=== PATIENT | male | born 1950 | race Caucasian/White ===

== ENCOUNTER 2017-08-19 00:12 | Observation (INO) | payer MEDICARE ==
[2017-08-19] VITALS (19 sets, daily range): BP systolic 97–145; BP diastolic 59–107
[~2017-08-19] VITALS: Ht 177.8 cm; Wt 74.4 kg
[~2017-08-19 00:12] MED LIST: ACET500T68 PO; ASPI-1471 PO; BIMA2.5D5 OP; CEPH500T7 PO; DOXY-179 PO; GLUC500T22 PO; HYDR-385 PO; MULT1TAB64 PO; OMEG-11 PO; OMEG1CAP39 PO; PNEI IJ; SIMV-49 PO; VITAPULSE PO
[2017-08-19] MEDS ORDERED: LIDOCAINE/SOD BICARB 8.4% SYR ID ONE (09:00)
[2017-08-19] MEDS ORDERED: GABAPENTIN 300 MG CAP PO ONE (09:00)
[2017-08-19] MEDS ORDERED: MIDAZOLAM 2 MG/2 ML VIAL IVP PRN (09:00)
[2017-08-19] MEDS ORDERED: NORMOSOL R SOLN(*) 1000 ML BAG 1,000 ML IV PRN (09:00)
[2017-08-19] MEDS ORDERED: DIAZEPAM 5 MG TAB PO ONE (09:00)
[2017-08-19] MEDS ORDERED: FAMOTIDINE 20 MG TAB PO ONE (09:00)
[2017-08-19] MEDS ORDERED: ceFAZolin(*) 2GM/D5W 50ML 50 ML IVPB ONE (09:00)
[2017-08-19 09:10] LABS: PLATELET COUNT, AUTOMATED 146 K/uL (150-450)
[2017-08-19] MEDS ORDERED: PROPOFOL EMUL(*) 10MG/ML 20 ML 40 ML ONE (09:28)
[2017-08-19] MEDS ORDERED: ROCURONIUM BROM 10 MG/ML 10 ML ONE (09:28)
[2017-08-19] MEDS ORDERED: ONDANSETRON 4 MG/2 ML VIAL ONE (09:28)
[2017-08-19] MEDS ORDERED: DEXAMETHASONE SOD PHOS 10MG/ML ONE (09:28)
[2017-08-19] MEDS ORDERED: ePHEDrine 25 MG/5 ML DISP.SYR IVP ONE (10:48)
[2017-08-19] MEDS ORDERED: fentaNYL CITR 250 MCG/5 ML AMP ONE (10:49)
[2017-08-19] MEDS ORDERED: SUGAMMADEX SOD 500 MG/5 ML SDV ONE (11:12)
[2017-08-19] MEDS ORDERED: SUGAMMADEX SOD 200 MG/2 ML SDV ONE (11:13)
[2017-08-19] MEDS ORDERED: diphenhydrAMINE 25 MG CAP PO PRN (12:05)
[2017-08-19] MEDS ORDERED: LR(*) 1000 ML BAG 1,000 ML IV PRN (12:05)
[2017-08-19] MEDS ORDERED: ACETAMINOPHEN(*)1000 MG/100 ML 100 ML IVPB PRN (12:05)
[2017-08-19] MEDS ORDERED: ONDANSETRON 4 MG/2 ML VIAL IVP PRN (12:05)
[2017-08-19] MEDS ORDERED: DIAZEPAM 5 MG TAB PO PRN (12:05)
[2017-08-19] MEDS ORDERED: HYDROmorphone HCL 2 MG/ML SDV IVP PRN (12:05)
[2017-08-19] MEDS ORDERED: BISACODYL 10 MG SUPP PR PRN (12:05)
[2017-08-19] MEDS ORDERED: BENZOCAINE/MENTHOL 1 EACH LOZG PO PRN (12:05)
[2017-08-19] MEDS ORDERED: MAGNESIUM HYDROXIDE* 30ML UDCP PO PRN (12:05)
[2017-08-19] MEDS ORDERED: ACETAMINOPHEN 500 MG TAB PO PRN (12:05)
[2017-08-19] MEDS ORDERED: FLUSH 10 ML SYR IVP PRN (12:05)
[2017-08-19] MEDS ORDERED: fentaNYL CITR 100 MCG/2 ML AMP ONE (12:14)
[2017-08-19] MEDS: oxyCODONE HCL 5 MG CAP PO PRN (13:41)
--- NOTE | 2017-08-19 13:49 | Hospitalist Consultation ---
History of Present Illness Requesting Physician Dr. Matias Reason for Consult Medical Management Chief Complaint s/p laminectomies History of Present Illness He was admitted s/p laminectomies. It is reported the surgery went well and without complications. History Problems: (1) Low back pain Status: Chronic Home Meds Reported Medications Acetaminophen (TYLENOL EXTRA STRENGTH) 500 Mg Tablet, 500 MG PO PRN, TAB 08/12/17 Bimatoprost (LUMIGAN) 2.5 Ml Drops, 1 DROP OP QHS 07/14/16 Lapel-3 Fatty Acids/Fish Oil (FISH OIL 1,000 MG CAPSULE) 1 Each Capsule, 1 CAP PO QDAY, CAPSULE 05/31/14 Glucosamine Hcl (GLUCOSAMINE HCL) 500 Mg Tablet, 1 TAB PO DAILY 11/10/13 Aspirin (ASPIR 81) 81 Mg Tablet.dr, 1 TAB PO QDAY, TAB 11/10/13 Multivitamin (MULTI VITAMIN DAILY) 1 Each Tablet, 1 TAB PO DAILY 11/10/13 Discontinued Reported Medications [VitaPulse] No Conflict Check, 1 CAP PO QDAY 11/08/15 Discontinued Scripts Cephalexin 500 Mg Tab (KEFLEX 500 MG TAB) 500 Mg Tablet, 500 MG PO Q6H, #28 TAB Prov:MERCEDES JOHNSON [facility] 02/09/17 Hydrocodone Bit/Acetaminophen (HYDROCODON-ACETAMINOPHEN 5-325) 1 Each Tablet, 1 EACH PO Q4-6H Y for PAIN, #12 TAB Prov:MERCEDES JOHNSON [facility] 02/09/17 Doxycycline Hyclate (DOXYCYCLINE HYCLATE) 100 Mg Tablet, 100 MG PO BID, #20 TAB Prov:KELLY MENDOZA MD 09/11/16 Allergies: Coded Allergies: No Known Drug Allergies (Unverified , 08/12/17) Patient History: FH: [place] (myocardial infarction) FATHER, , Age:74, Onset:58 MATERNAL GRANDFATHER, , Age:50's - 60, Onset:50's - 60 FH: breast cancer MOTHER, , Age:84, Onset:Unknown FH: hypercholesterolemia BROTHER OR SISTER, Age:69 FH: skin cancer MOTHER, , Age:84, Onset:Unknown Hx Smoking: No (WHEN YOUNG) Smoking Status: Former Smoker Caffeine Intake: Coffee Caffeine/Cups Per Day: 4 CPD Hx Alcohol Use: No Hx Substance Use Disorder: No Social Drug Use: Never Review of Systems All Systems Reviewed/Normal: Yes, Except as Noted Exam Vital Signs Vital Signs Date Time Temp Pulse Resp B/P (MAP) Pulse Ox O2 Delivery O2 Flow Rate FiO2 08/19/17 13:34 94 08/19/17 13:30 60 131/77 (95) 08/19/17 13:28 Nasal Cannula 0.5 08/19/17 13:16 97.3 12 General Appearance: Alert, Awake, No Acute Distress, Afebrile Neuro: No Gross deficits Cardiovascular: Regular Rate and Rhythm Respiratory: No Respiratory Distress, Clear to Auscultation GI: Abd Soft and Non-Tender Psych: Alert & Oriented X3, Appropriate Mood & Affect Medical Decision Making Data Points Result Diagram: 08/19/17 0855 Assessment and Plan Problems: (1) S/P laminectomy Status: Acute Assessment & Plan: Followed by Dr. Matias. He denies any significant medical history. He denies prescribed medications and usually only takes vitamins daily. Venous Thromboembolism Antithrombotics Is Pt On Any Antithrombotics?: No Exam Sepsis Risk: No Definite Risk JAMES VILLAREAL PROFESSOR OF OCEANOGRAPHY August 19, 2017 13:49
--- NOTE | 2017-08-19 14:40 | OPERATIVE REPORT 1 ---
EVENT DATE: August 19, 2017 SURGEON: Anirudh Matias MD ANESTHESIOLOGIST: Angel Mckeon MD ANESTHESIA: General endotracheal anesthesia. LIPCOAT SPRAYER: RAMAKRISHNA Tong PREOPERATIVE DIAGNOSIS L3-L4 and L4-L5 spinal stenosis with bilateral lower extremity radiculopathy and neurogenic claudication. POSTOPERATIVE DIAGNOSIS L3-L4 and L4-L5 spinal stenosis with bilateral lower extremity radiculopathy and neurogenic claudication. PROCEDURE PERFORMED L3 to L5 laminectomy. INTRAVENOUS FLUIDS 1400 mL ESTIMATED BLOOD LOSS 75 mL IMPLANTS USED None. SPECIMENS None. DRAINS None. COMPLICATIONS None. DISPOSITION Post-anesthesia care unit. INDICATIONS FOR SURGERY Mr. Mariee is a 67-year-old male who presented to my clinic with the chief complaint of bilateral radiating pain, numbness, and tingling down the posterior buttock, posterolateral thigh, and down the anterior thigh. He noted weakness in bilateral lower extremities and decreased walking tolerance secondary to the pain, as well as a sensation of heaviness and tiredness in his legs. His physical examination was essentially normal, but his imaging studies revealed severe spinal stenosis at the L4-L5 level secondary to facet hypertrophy, broad-based disk bulging, and ligamentum flavum thickening. There was ftowenuj-[id number]-dyfkqu stenosis, left greater than right, at the L3-L4 level as well. Mr. Mariee had failed physical therapy medications and other nonsurgical care, and he ultimately elected to undergo L3 to L5 laminectomy. Prior to surgery, I explained in detail to the patient the possible risks of surgery. These risks included bleeding, infection, damage to surrounding structures, nerve root injury, spinal fluid leak, meningitis, , blindness, sexual dysfunction, autonomic nervous system dysfunction, and other unforeseen medical and surgical complications. An understanding that spinal surgery is more predictive at improving extremity discomfort than axial spine pain was stressed. DESCRIPTION OF PROCEDURE On the day of surgery, the patient was met in the preoperative hold area, and all questions were answered. The operative site was identified and marked by myself. The patient was brought in good condition to the operating room, and after succumbing to anesthesia, was positioned in the prone position on a Gulshan table. All bony protuberances and soft tissues were well padded in the standard fashion. Care was taken to maintain appropriate perfusion pressures during anesthesia. Preoperative antibiotics were administered according to the appropriate timing schedule. At the conclusion of the procedure, the sponge and needle counts were correct times two. A final timeout was undertaken to confirm correct patient, correct levels, and correct surgery. The patient was then prepped and draped in the standard sterile orthopedic fashion. A vertical incision was made over the intended surgical levels. Dissection was carried out down to the posterior elements, and soft tissues were elevated off the posterior elements in a subperiosteal manner. A lateral radiograph was obtained to confirm correct levels. Self- retaining retractors were placed, and a combination of Leksell rongeurs and a Forkforce bone cutter was used to remove the spinous processes of L3 and L4. Once this was accomplished, the laminas were thinned in the midline using a combination again of the Leksell rongeur and a high-speed 5 mm giovanni. The canal was entered by using a curette to undermine the superior insertion of the ligamentum flavum on the inferior aspect of the L4 lamina. A Charlotte elevator was used to separate any dural adhesions from the surrounding bone and soft tissue prior to the use of the Kerrison punch. A midline decompression was accomplished utilizing a combination of the high-speed giovanni and a 4.0 Kerrison punch. The laminae were then thinned bilaterally with combination of the Leksell rongeur and the high-speed giovanni. Bilateral lateral recess decompressions were performed, removing significant thickened ligamentum flavum and bone from the left greater than the right side at L3-L4 and the right greater than the left side at L4-L5. Care was taken to avoid taking too much of the pars interarticularis or more than 50% of any facet. At the conclusion of the decompression, a Steven elevator was used to check the lateral recesses as well as the foramina to ensure adequate decompression was achieved. Meticulous hemostasis was obtained using FloSeal and surgical patties, and the wound was irrigated with copious sterile saline solution. The wound was then closed in layers using interrupted sutures for the deep fascia, interrupted sutures for the subcutaneous tissue, and then a running subcuticular skin stitch. Sponge and needle counts were correct times two. POSTOPERATIVE CARE PLAN The patient will remain in the hospital until he meets discharge criteria. He will follow up with me in two weeks' time for examination and wound check. BEE
--- NOTE | 2017-08-19 16:40 | RADIOLOGY IMAGING REPORT ---
FACILITY: [facility] PATIENT NAME: Angel Mariee : 1950 MR: [id number] V: [id number] EXAM DATE: ORDERING PHYSICIAN: EDDI BOGGS TECHNOLOGIST: Location: [facility] [place] Patient: Angel Mariee : 1950 Visit/Account:[id number] Date of Sevice: 08/19/2017 LUMBAR SPINE 1 VIEW Indication: L3-4, L4-5 LAMINECTOMIES Comparison: None. Findings: Intraoperative images available, with surgical instrument at the level of L3. IMPRESSION: Intraoperative lumbar spine surgery, with instrument at the level of L3 imaged. Report Dictated By: Edison Monsalve at 08/19/2017 4:37 PM Report E-Signed By: Edison Monsalve at 08/19/2017 4:37 PM WSN:[id number]
[2017-08-19] MEDS: ceFAZolin(*) 2GM/D5W 50ML 50 ML IVPB SCH (17:59)
[2017-08-19] MEDS: APAP/HYDROCODONE 325/5 TAB PO PRN (18:05)
[2017-08-19] MEDS: DOCUSATE SODIUM 100 MG CAP PO SCH (20:48)
[2017-08-20] VITALS: BP 113/63
[2017-08-20 01:00] VITALS: BP 107/65
[2017-08-20] MEDS: oxyCODONE HCL 5 MG CAP PO PRN (02:11)
[2017-08-20] MEDS: ceFAZolin(*) 2GM/D5W 50ML 50 ML IVPB SCH ×2 (02:16→11:21)
[2017-08-20 03:06] VITALS: BP 122/69
[2017-08-20 09:02] VITALS: BP 139/81
[2017-08-20] MEDS ORDERED: TAMSULOSIN HCL 0.4 MG CAP PO SCH (09:05)
[2017-08-20] MEDS: APAP/HYDROCODONE 325/5 TAB PO PRN ×2 (09:35→13:39)
[2017-08-20] MEDS: DOCUSATE SODIUM 100 MG CAP PO SCH (09:35)
[2017-08-20] MEDS ORDERED: DIA5 PO (09:59)
[2017-08-20] MEDS ORDERED: DOCU240C84 PO (09:59)
[2017-08-20] MEDS ORDERED: LOR5/325 PO (10:00)
--- NOTE | 2017-08-20 10:45 | Hospitalist Progress Note ---
Subjective Progress Notes Subjective He has complaints of difficulty urinating. Patient Complains of: Cardiovascular: No: Chest Pain Respiratory: No: Shortness of Breath Physical Exam Vital Signs Date Time Temp Pulse Resp B/P (MAP) Pulse Ox O2 Delivery O2 Flow Rate FiO2 08/20/17 09:44 95 08/20/17 09:02 98.2 67 16 139/81 (100) Room Air 08/20/17 03:06 1.0 Intake and Output 08/21/17 01:00 Intake Total 340 ml Output Total 750 ml Balance -410 ml Intake Oral 340 ml Output Urine Total 750 ml # Voids 2 General Appearance: Alert, Awake, No Acute Distress, Afebrile Neuro: No Gross deficits Cardiovascular: Regular Rate and Rhythm Respiratory: No Respiratory Distress, Clear to Auscultation GI: Soft and Non-Tender Psych: Alert & Oriented X3, Appropriate Mood & Affect Result Diagram: 08/19/17 0855 Assessment and Plan Problems: (1) S/P laminectomy Status: Acute Assessment & Plan: Followed by Dr. Matias. He denies any significant medical history. He denies prescribed medications and usually only takes vitamins daily. We will add Flomax today for help with urination. Exam Sepsis Risk: No Definite Risk JAMES VILLAREAL [employer] HAT BLOCKER August 20, 2017 10:45
[2017-08-20 12:39] VITALS: Ht 177.8 cm; Wt 74.4 kg
[2017-08-20] MEDS ORDERED: TAMS0.4C70 PO (14:11)
== END 2017-08-20 09:55 | disposition home or self-care (01) ==
LOC: OR 00:12 → MED 13:15
PROVIDERS: ADMIT Orthopaedic Surgery; ATTEND Orthopaedic Surgery
DX: M48.062 Spinal stenosis, lumbar region with neurogenic claudication (principal); G89.4 Chronic pain syndrome; R39.198 Other difficulties with micturition
CPT/HCPCS: 36415; 63030; 63035; 72020; 85025; 86850; 86900; 86901; 97116; 97161; A9270; G0378; J0131; J1100; J2405; J2704; J3010; J0690

== ENCOUNTER → 2018-10-05 | Outpatient (CLI) | payer MEDICARE ==
[2017-08-20 12:39] VITALS: BMI 23.5
[~2018-10-05] MED LIST changes: +ATOR10TA24 PO; +ATOR20TA65 PO; +DIA5 PO; +DOCU240C84 PO; +LOR5/325 PO; +ROSU10TA PO; +TAMS0.4C70 PO; +UBID100C48 PO
[2018-10-05 07:45] LABS: PLATELET COUNT, AUTOMATED 166 K/uL (150-450)
[2018-10-05 08:03] LABS: LDL CHOLESTEROL 103 mg/dl
== END ==
LOC: LAB 07:25
PROVIDERS: ATTEND Internal Medicine
DX: Z12.5 Encounter for screening for malignant neoplasm of prostate (principal); E78.5 Hyperlipidemia, unspecified; R03.0 Elevated blood-pressure reading, without diagnosis of hypertension
CPT/HCPCS: 36415; 81001; 84443; 85025; G0103; 82040; 82247; 82310; 82374; 82435; 82465; 82565; 82947; 83718; 84075; 84132; 84153; 84155; 84295; 84450; 84460; 84478; 84520